=== PATIENT | female | born 1950 | race Two or more races ===

== ENCOUNTER → 2016-08-19 | Outpatient (CLI) | payer MEDICARE, BC | LOC: WI 13:56 | PROVIDERS: ATTEND Physician Assistant Medical | DX: Z12.31 Encounter for screening mammogram for malignant neoplasm of breast (principal) | CPT/HCPCS: 77067; G0202 ==

== ENCOUNTER → 2017-09-12 | Outpatient (CLI) | payer MEDICARE, BC ==
--- NOTE | 2017-09-12 18:03 | WOMENS IMAGING REPORT ---
EXAM DESCRIPTION: BILAT SCREENING MAMMO W/CAD COMPLETED DATE/TIME: 09/12/2017 1:26 pm REASON FOR STUDY: SCREENING MAMMO Z12.31 ENCNTR SCREEN MAMMOGRAM FOR MALIGNANT NEOPLASM OF PRADEEP COMPARISON: 2016 TECHNIQUE: Standard craniocaudal and mediolateral oblique views of each breast recorded using [employer] l acquisition. LIMITATIONS: None. FINDINGS: Findings present which are benign by mammographic criteria. No suspicious masses, calcifi cations or architectural distortion. Pertinent benign findings: Benign calcification right breast Read with the assistance of CAD. .[facility] - R2 Cenova Version 1.3 .[facility] Imaging - R2 Cenova Version 1.3 .[facility] - R2 Cenova Version 2.4 .[facility] - R2 Cenova Version 2.4 .[facility] - R2 Powerbuilder Version 9.2 Benign mammographic findings may include one or more of the following: Smooth masses, popcorn/rim/co arse calcifications, asymmetries, post-procedure changes, and lesions with long-standing stability. IMPRESSION: BENIGN MAMMOGRAPHIC FINDINGS. BIRADS 2 BREAST DENSITY: b. There are scattered areas of fibroglandular density. BIRAD: 2 BENIGN FINDING(S) RECOMMENDATION: ROUTINE SCREENING Please continue yearly bilateral screening mammography/tomosynthesis in August 2018 COMMENT: The patient has been notified of the results by letter per SA requirements. Additional no tification policies are in place for contacting patient with suspicious or incomplete findings. Quality ID #[id number]: The [employer] recommends an annual screening mammogram for women aged 40 years or over. This facility utilizes a reminder system to ensure that all patients receive reminder letters, and/or direct phone calls for appointments. This includes reminders for routine scr eening mammograms, diagnostic mammograms, or other Breast Imaging Interventions when appropriate. Th is patient will be placed in the appropriate reminder system. The [employer] (ACR) has developed recommendations for screening MRI of the breast s in certain patient populations, to be used in conjunction with mammography. Breast MRI surveillanc e may be appropriate for women with more than 20% lifetime risk of developing breast cancer as deter mined by genetic testing, significant family history of the disease, or history of mantle radiation f or Hodgkins Disease. ACR Practice Guidelines 2008. TECHNICAL DOCUMENTATION: FINDING NUMBER: (1) ASSESSMENT: (1) JOB ID: [id number] [employer]- All Rights Reserved Reading location - IP/workstation name: [email or web address]
== END ==
LOC: WI 12:56
PROVIDERS: ATTEND Nurse Practitioner Family
DX: Z12.31 Encounter for screening mammogram for malignant neoplasm of breast (principal)
CPT/HCPCS: 77067

== ENCOUNTER → 2017-09-22 | Outpatient (CLI) | payer MEDICARE, BC ==
--- NOTE | 2017-09-22 10:26 | WOMENS IMAGING REPORT ---
EXAM DESCRIPTION: BONE DENSITY HIP/SPINE COMPLETED DATE/TIME: 09/22/2017 10:17 am REASON FOR STUDY: OSTEOPROSIS; M81.0 M81.0 AGE-RELATED OSTEOPOROSIS W/O CURRENT PATHOLOGICAL FRAC COMPARISON: None. TECHNIQUE: Dual-Energy X-ray Absorptiometry (DEXA) of the AP Spine and Hip. LIMITATIONS: None. FINDINGS: LUMBAR SPINE: The bone mineral density (BMD) measured from L1-L4 in the AP projection correlates with a T-score of -0.2, which is normal as defined by the World Health Organization. HIP: The bone mineral density (BMD) measured in the left hip correlates with a T-score of -0.6 in the femo ral neck, which is normal as defined by the World Health Organization. IMPRESSION: 1. LUMBAR SPINE: NORMAL. 2. HIP: NORMAL. COMMENT: The World Health Organization defines low BMD as follows: T-score: Normal: Greater than -1.0 Osteopenia: Between -1.0 and -2.5 Osteoporosis: Less than -2.5 without fractures Established osteoporosis: Less than -2.5 with fractures In general, you may wish to consider: Diagnosis Treatment Follow-up DEXA Normal BMD Prevention 2-3 years Osteopenia Prevention/Therapy 1-2 years Osteoporosis Therapy Yearly TECHNICAL DOCUMENTATION: JOB ID: [id number] [employer]- All Rights Reserved Reading location - IP/workstation name: [email or web address]
== END ==
LOC: WI 09:59
PROVIDERS: ATTEND Nurse Practitioner Family
DX: M81.0 Age-related osteoporosis without current pathological fracture (principal)
CPT/HCPCS: 77080

== ENCOUNTER → 2018-09-14 | Outpatient (CLI) | payer MEDICARE, BC ==
--- NOTE | 2018-09-14 15:10 | WOMENS IMAGING REPORT ---
EXAM DESCRIPTION: BILAT SCREENING MAMMO W/CAD COMPLETED DATE/TIME: 09/14/2018 9:20 am REASON FOR STUDY: Z12.31 ENCOUNTER FOR SCREENING MAMMOGRAM FOR MALIGNANT NEOPLASM OF BREAST Z12.31 ENCNTR SCREEN MAMMOGRAM FOR MALIGNANT NEOPLASM OF PRADEEP COMPARISON: 09/12/2017 and 08/19/2016. TECHNIQUE: Standard craniocaudal and mediolateral oblique views of each breast recorded using digita l acquisition. LIMITATIONS: None. FINDINGS: No masses, calcifications or architectural distortion. No areas of suspicion. Read with the assistance of CAD. .[facility] - R2 Cenova Version 1.3 .[facility] Imaging - R2 Cenova Version 2.1 .[facility] Imaging - R2 Cenova Version 2.4 .[facility] [place] R2 Cenova Version 2.4 .[facility] - R2 Gill Box Tender Version 9.2 IMPRESSION: NORMAL MAMMOGRAM. BIRADS 1. BREAST DENSITY: b. There are scattered areas of fibroglandular density. BIRAD: 1 NEGATIVE RECOMMENDATION: ROUTINE SCREENING COMMENT: The patient has been notified of the results by letter per SA requirements. Additional no tification policies are in place for contacting patient with suspicious or incomplete findings. Quality ID #[id number]: The [employer] recommends an annual screening mammogram for women aged 40 years or over. This facility utilizes a reminder system to ensure that all patients receive reminder letters, and/or direct phone calls for appointments. This includes reminders for routine scr eening mammograms, diagnostic mammograms, or other Breast Imaging Interventions when appropriate. Th is patient will be placed in the appropriate reminder system. The [employer] (ACR) has developed recommendations for screening MRI of the breast s in certain patient populations, to be used in conjunction with mammography. Breast MRI surveillanc e may be appropriate for women with more than 20% lifetime risk of developing breast cancer as deter mined by genetic testing, significant family history of the disease, or history of mantle radiation f or Hodgkins Disease. ACR Practice Guidelines 2008. TECHNICAL DOCUMENTATION: FINDING NUMBER: (1) ASSESSMENT: (1) JOB ID: [id number] [employer]- All Rights Reserved Reading location - IP/workstation name: [email or web address]
== END ==
LOC: WI 08:50
PROVIDERS: ATTEND Physician Assistant
DX: Z12.31 Encounter for screening mammogram for malignant neoplasm of breast (principal)
CPT/HCPCS: 77067

== ENCOUNTER 2019-04-10 10:21 | Emergency (ER) | payer MEDICARE, BC ==
--- NOTE | 2019-04-10 11:10 | ER Document Report ---
ED Medical Screen (RME) - General Chief Complaint: Abnormal Lab Results Stated Complaint: ABNORMAL LABS Time Seen by Provider: 04/10/19 11:06 Primary Care Provider: FARIBA NGUYEN PA-C [Primary Care Provider] - Follow up as needed Mode of Arrival: Ambulatory Information source: Patient Notes: 68-year-old female presents to ED for abnormal lab work. She is to the e mergency room today to get blood work. She states that she went to the eye doctor and they did some CAT scans with daughter yesterday. He called her to get blood work and faxed over a list of blood work he would like have done. Patient is alert oriented respirations regular nonlabored speaking in full sentences. She is getting retinal work done and this is the retinal specialist that is requesting the labs. I have greeted and performed a rapid initial assessment of this patient. A comprehensive ED assessment and evaluation of the patient, analysis of test results and completion of medical decision making process will be conducted by an additional ED providers. TRAVEL OUTSIDE OF THE [place] IN LAST 30 DAYS: No Physical Exam - Vital signs Vitals: Temp Pulse Resp BP Pulse Ox 97.9 F 86 16 185/73 H 98 04/10/19 10:28 04/10/19 10:28 04/10/19 10:28 04/10/19 10:28 04/10/19 10:28 Course - Vital Signs Vital signs: Temp Pulse Resp BP Pulse Ox 97.9 F 86 16 185/73 H 98 04/10/19 10:28 04/10/19 10:28 04/10/19 10:28 04/10/19 10:28 04/10/19 10:28 Doctor's Discharge - Discharge Referrals: FARIBA NGUYEN PA-C [Primary Care Provider] - Follow up as needed
[2019-04-10 11:24] LABS: ABSOLUTE EOSINOPHILS # (AUTO) 0.1 10^3/uL (0.0-0.6); ABSOLUTE LYMPHOCYTES (AUTO) 1.3 10^3/uL (0.5-4.7); ABSOLUTE MONOCYTES (AUTO) 0.5 10^3/uL (0.1-1.4); MEAN CORPUSCULAR HGB CONC 32.7 g/dL (32.0-36.0); MEAN CORPUSCULAR VOLUME 91 fl (80-97); TOTAL CELLS COUNTED % (AUTO) 100 %; WHITE BLOOD COUNT 6.1 10^3/uL (4.0-10.5)
[2019-04-10 11:35] LABS: ABSOLUTE NEUT (AUTO) 4.1 10^3/uL (1.7-8.2); BASOPHILS % (AUTO) 0.8 % (0-2); HEMATOCRIT 39.4 % (36.0-47.0); HEMOGLOBIN 12.9 g/dL (12.0-15.5); LYMPHOCYTES % (AUTO) 21.9 % (13-45); MEAN CORPUSCULAR HEMOGLOBIN 29.6 pg (27.0-33.4); MONOCYTES % (AUTO) 7.7 % (3-13); PLATELET COUNT 191 10^3/uL (150-450); RED BLOOD COUNT 4.35 10^6/uL (3.72-5.28); RED CELL DISTRIBUTION WIDTH 14.6 % (11.5-14.0); SEGMENTED NEUTROPHILS % (AUTO) 67.6 % (42-78)
[2019-04-10 11:37] LABS: INTERNATIONAL RATION (INR) 1.04; PROTHROMBIN TIME 13.6 SEC (11.4-15.4)
[2019-04-10 11:44] LABS: ALBUMIN 4.3 g/dL (3.5-5.0); ALKALINE PHOSPHATASE 117 U/L (38-126); ANION GAP 13 (5-19); ASPARTATE AMINO TRANSFERASE 44 U/L (14-36); BILIRUBIN,DIRECT 0.4 mg/dL (0.0-0.4); BILIRUBIN,TOTAL 0.4 mg/dL (0.2-1.3); BLOOD UREA NITROGEN 18 mg/dL (7-20); CALCIUM 10.1 mg/dL (8.4-10.2); CARBON DIOXIDE 22 mmol/L (22-30); CHLORIDE 109 mmol/L (98-107); GLUCOSE 167 mg/dL (75-110); POTASSIUM 4.8 mmol/L (3.6-5.0); TOTAL PROTEIN 7.4 g/dL (6.3-8.2)
[2019-04-10 12:12] LABS: ERYTHROCYTE SEDIMENTATION RATE 67 mm/hr (0-30)
--- NOTE | 2019-04-10 12:45 | ER Document Report ---
Entered by JESSICA CARRASQUILLO SCRIBE 04/10/19 1221 Acting as scribe for:ART SELLERS MD ED Eye Complaint - General Chief Complaint: Eye Problem Stated Complaint: ABNORMAL LABS Time Seen by Provider: 04/10/19 11:06 Primary Care Provider: FARIBA NGUYEN PA-C [NO LOCAL MD] - Follow up as needed Mode of Arrival: Ambulatory Information source: Patient Notes: Patient is a 68-year-old female with a history of vision loss in the left eye for the last month with an associated vitreous hemorrhage. Patient states she saw a retinal specialist yesterday, Dr. Martins, who told her that she needs to have "several tests run in the hospital for a few days". Patient states that her specialist "thought there was inflammation somewhere in her body". Patient states there is nothing new or different today. Further clarification of the history after speaking with Dr. Andrade in [place]. 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 She was supposed to come to the emergency room yesterday after leaving the office to be admitted and worked up. They were under the impression that [facility] is a stroke center. There may have been information faxed here from the office yesterday, but since the patient did not present that information may well have been discarded. On clarifying the history with the patient, she had a sharp pain in her left eye about 1/2 months ago and over the next few days developed central vision blurriness that eventually turned to black about [address] Ortez told me that if the complete loss of central vision was greater than 3 to 4 days, then there was no urgency to start a work-up on the weekend and she could follow-up with their office on Friday to get her studies ordered as an outpatient. TRAVEL OUTSIDE OF THE [place] IN LAST 30 DAYS: No - Related Data Home Medications: losartan 100mg once a day. meloxican 7.5mg bid Past Medical History - General Information source: Patient - Social History Smoking Status: Former Smoker - quit around 1989 Cigarette use (# per day): No Chew tobacco use (# tins/day): No Smoking Education Provided: No Frequency of alcohol use: None Drug Abuse: None Family History: Reviewed & Not Pertinent Patient has suicidal ideation: No Patient has homicidal ideation: No - Past Medical History Cardiac Medical History: Reports: Hx Hypertension Endocrine Medical History: Reports: Hx Diabetes Mellitus Type 2 GI Medical History: Reports: Hx Gastroesophageal Reflux Disease Past Surgical History: Reports: Hx Hysterectomy, Hx Orthopedic Surgery - right arthroscopic shoulder surgery, Other - right carpal tunnel sx Review of Systems - Review of Systems Constitutional: No symptoms reported EENT: See HPI, Other - chronic vision loss of left eye for x1 month Cardiovascular: No symptoms reported Respiratory: No symptoms reported Gastrointestinal: No symptoms reported Genitourinary: No symptoms reported Female Genitourinary: No symptoms reported Musculoskeletal: Leg swelling - mentions if she is on her feet all day she notices swelling Skin: No symptoms reported Hematologic/Lymphatic: No symptoms reported Neurological/Psychological: No symptoms reported -: Yes All other systems reviewed and negative Physical Exam - Vital signs Vitals: Temp Pulse Resp BP Pulse Ox 97.9 F 86 16 185/73 H 98 04/10/19 10:28 04/10/19 10:28 04/10/19 10:28 04/10/19 10:28 04/10/19 10:28 - Notes Notes: Physical Exam: General: Alert, appears well. HEENT: Normocephalic. Atraumatic. PERRL. Extraocular movements intact. Oropharynx clear. Neck: Supple. Non-tender. Respiratory: No respiratory distress. Clear and equal breath sounds bilaterally. Cardiovascular: Regular rate and rhythm. Abdominal: Obese. Non-tender. No distension. Normal Bowel Sounds. Back: No gross abnormalities. Extremities: Moves all four extremities. Upper extremities: Normal inspection. Normal ROM. Lower extremities: Trace edema bilaterally. Normal ROM. Neurological: Normal cognition. AAOx4. Normal speech. Psychological: Normal affect. Normal Mood. Skin: Warm. Dry. Normal color. Course - Re-evaluation Re-evalutation: 04/10/19 14:14 Patient blood pressure 176/73 at this time. She states that is what her blood pressure normally runs. Asked her if she ever discussed this with her doctor about getting better control of her blood pressure, and she says no. I advised her that it would be a good idea to talk to her doctor about reviewing her medications and her blood pressure control. 04/10/19 15:58 Dr. Martins did call me back at 2:36 PM, but the patient had already been discharged at this point. He was concerned about her having a [place]st plaque and a need for stroke work-up. He also wanted her started on aspirin and pulse dose steroids. He thought she would be better managed in the hospital b ecause of her diabetes if she were to receive the steroids. I reviewed the chart and found that she takes only metformin 500 mg twice daily for her diabetes, and this should not be a problem for adding high-dose steroids on a short-term basis. He is going to try to contact the patient and call in a prescription for the prednisone and have her take full dose aspirin and then follow-up with him. - Vital Signs Vital signs: Temp Pulse Resp BP Pulse Ox 97.9 F 86 19 176/73 H 99 04/10/19 10:28 04/10/19 10:28 04/10/19 14:11 04/10/19 14:11 04/10/19 14:11 - Laboratory Result Diagrams: 04/10/19 11:01 04/10/19 11:01 Laboratory results interpreted by me: 04/10/19 04/10/19 11:01 11:01 RDW 14.6 H ESR 67 H Chloride 109 H Glucose 167 H AST 44 H Discharge - Discharge Clinical Impression: Central loss of vision Qualifiers: Laterality: left Qualified Code(s): H53.412 - [place] involving central area, left eye Condition: Stable Disposition: HOME, SELF-CARE Additional Instructions: Call Dr. Martins Friday and let him know you did not come to the hospital until Friday. Any information he may have faxed over on Friday could not be located. I did discuss the case with Dr. Andrade who did not feel that the work-up was emergent at this time. He will need to order the necessary tests for your work-up as an outpatient or make arrangements for inpatient evaluation at a facility that has the necessary capabilities. Since I do not know exactly what tests he wanted done, I do not know if this facility is capable of doing those tests. RETURN TO THE EMERGENCY ROOM IF ANY NEW OR WORSENING SYMPTOMS. Referrals: FARIBA NGUYEN PA-C [NO LOCAL MD] - Follow up as needed Scribe Attestation: 04/10/19 14:04 I personally performed the services described in the documentation, reviewed and edited the documentation which was dictated to the scribe in my presence, and it accurately records my words and actions. I personally performed the services described in the documentation, reviewed and edited the documentation which was dictated to the scribe in my presence, and it accurately records my words and actions.
[2019-04-10 13:13] LABS: C-REACTIVE PROTEIN 7.8 mg/L (<10.0)
[2019-04-10 14:36] VITALS: BP 176/73
== END 2019-04-10 14:37 | disposition home or self-care (01) ==
LOC: ER 10:21
DX: H53.412 Scotoma involving central area, left eye (principal); H57.12 Ocular pain, left eye; H54.62 Unqualified visual loss, left eye, normal vision right eye; H43.12 Vitreous hemorrhage, left eye; Z79.899 Other long term (current) drug therapy; Z87.891 Personal history of nicotine dependence; I10 Essential (primary) hypertension; E11.9 Type 2 diabetes mellitus without complications
CPT/HCPCS: 36415; 80053; 85025; 85610; 85652; 86140; 99283

== ENCOUNTER → 2020-05-09 | Outpatient (CLI) | payer MEDICARE, BC ==
--- NOTE | 2020-05-10 14:52 | WOMENS IMAGING REPORT ---
EXAM DESCRIPTION: BILAT SCREENING MAMMO W/CAD IMAGES COMPLETED DATE/TIME: 05/09/2020 3:35 pm REASON FOR STUDY: Z12.31 ENCOUNTER FOR OTHER SCREENING FOR MALIGNANT NEOPLASM OF BREAST Z12.31 ENCN TR SCREEN MAMMOGRAM FOR MALIGNANT NEOPLASM OF PRADEEP COMPARISON: Priors back to 2017 EXAM PARAMETERS: Standard craniocaudal and mediolateral oblique views of each breast recorded using digital acquisition. Read with the assistance of CAD. .[facility] - [employer] Captain Version 9.2 LIMITATIONS: None. FINDINGS: No suspicious masses, suspicious calcifications or architectural distortion. No areas of c oncern. IMPRESSION: NEGATIVE MAMMOGRAM. BIRADS 1 BREAST DENSITY: b. There are scattered areas of fibroglandular density. BIRAD: ASSESSMENT: 1 NEGATIVE RECOMMENDATION: ROUTINE SCREENING COMMENT: The patient has been notified of the results by letter per SA requirements. Additional no tification policies are in place for contacting patient with suspicious or incomplete findings. Quality ID #[id number]: The [employer] recommends an annual screening mammogram for women aged 40 years or over. This facility utilizes a reminder system to ensure that all patients receive reminder letters, and/or direct phone calls for appointments. This includes reminders for routine scr eening mammograms, diagnostic mammograms, or other Breast Imaging Interventions when appropriate. Th is patient will be placed in the appropriate reminder system. TECHNICAL DOCUMENTATION: FINDING NUMBER: (1) ASSESSMENT: (1) JOB ID: [id number] [employer]- All Rights Reserved Reading location - IP/workstation name: [email or web address]
== END ==
LOC: WI 15:01
PROVIDERS: ATTEND Nurse Practitioner Family
DX: Z12.31 Encounter for screening mammogram for malignant neoplasm of breast (principal)
CPT/HCPCS: 77067